=== PATIENT | female | born 1970 | race Caucasian/White ===

== ENCOUNTER 2016-11-04 16:30 | Emergency (ER) | payer MEDICAID ==
--- NOTE | 2016-11-04 16:33 | ED Physician Chart ---
Chief Complaint/HPI - Patient Information Date Seen:: 11/04/16 Time Seen:: 16:33 Chief Complaint:: eyelid swelling History of Present Illness:: 46-year-old female history of anxiety, complains of acute, constant, moderate, left upper eyelid swelling 6 days with associated itching of the upper eyelid. Denies any acute vision changes. No injury. Allergies:: Allergies Allergy/AdvReac Type Severity Reaction Status Date / Time Penicillins [PCN] Allergy Verified 06/17/16 16:00 Historian:: Patient Review:: Nurse's Note Reviewed Review of Systems - Review of Systems Other: Complete system review otherwise unremarkable except as noted in HPI. Past Medical History - Past Medical History Past Medical History: Asthma/COPD, Other (anxiety) Family History: None Social History: Non Smoker, No Alcohol, No Drug Use, Single Surgical History: None Psychiatricy History: Other (anxiety) Medication: Reviewed Family Medical History - Family Member mother History Unknown: Yes Ethnicity: Living Status: Still Living Hx Family Cancer: Yes (her brother of bone cancer 2 months ago.) Hx Family Coronary Artery Disease: No Hx Family Congestive Heart Failure: No Hx Family Hypertension: Yes Hx Family Stroke: No Hx Family Diabetes: No Hx Family Seizures: No Hx Family Dementia: No Hx Family AIDS: No Hx Family HIV: No Hx Family COPD: No Hx Family Hepatitis: No Hx Family Psychiatric Problems: Yes (anxiety) Hx Family Tuberculosis: No Physical Exam - Physical Examination Other:: INITIAL VITAL SIGNS: Reviewed by me GENERAL: Alert and interactive. No acute distress HEAD: Head is normocephalic and atraumatic EYES: EOMI. . No scleral icterus. Left upper lid is erythematous with some focal swelling consistent with hordeolum. ENT: Moist mucous membranes. NECK: Supple. No masses. Full range of motion RESPIRATORY: No tachypnea. Clear breath sounds bilaterally. No wheezing, rales, or rhonchi CV: Regular rate and rhythm. No murmurs, rubs, or gallops ABDOMEN: Soft, non-distended, non-tender. No guarding. No rebound. No masses. EXTREMITIES: No deformity. No cyanosis. No edema. SKIN: Warm and dry. No obvious rashes. NEUROLOGIC: Alert and oriented. Face is symmetric. Speech is normal. Moves all extremities equally. Motor and sensory distally intact. ED Septic Shock - . Is Septic Shock (SBP<90, OR Lactate>4 mmol\L) present?: No Reassessment (Disposition) - Reassessment Reassessment:: The patient's blood pressure was elevated (>120/80) but appears stable without evidence of hypertensive emergency or urgency. The patient was counseled about the risks hypertension urged to pursue outpatient monitoring and therapy within a week with her primary care physician. Patient has a hordeolum of the left upper lid. We will prescribe her Keflex and Polytrim eyedrops. She also has flulike symptoms as well. Has a history of asthma. We provided a prescription for prednisone for 5 days patient also received a breathing treatment. Patient felt much improved. Recommended follow -up with PCP in 2-3 days. Gave return to ER precautions. Patient understands and agrees with the plan. Reassessment Condition:: Improved - Diagnosis Diagnosis:: Hordeolum left upper lid Acute bronchitis Elevated blood pressure without diagnosis of hypertension - Aftercare/Follow up Instructions Aftercare/Follow-Up Instructions:: Counseled pt regarding lab results/diagnosis & need follow up, Refer to Discharge Instructions Medication Prescribed:: Keflex Polytrim - Patient Disposition Discharge/Transfer:: Home Time:: 17:49 Condition at Disposition:: Improved ED Discharge Plan - Patient Disposition Admit/Discharge/Transfer: PT DISCHARGED HOME Condition at Disposition: Improved Prescriptions: Cephalexin [Keflex] 500 mg PO Q6HR #40 cap Polymyxin B Sulf/Trimethoprim [Polytrim Eye Drops] 10 ml OP QID #0 drops Instructions: Sty, Bronchitis, [id number] Accepting Physician: Dru Young [Provisional Staff] - 1-3 Days
[2016-11-04] MEDS ORDERED: Albuterol/Ipratropium Neb 3 ML AERS HHN ONE ×2 (17:10→17:14)
== END 2016-11-04 18:09 | disposition home or self-care (01) ==
LOC: ER 16:30
DX: H00.014 Hordeolum externum left upper eyelid (principal); J20.9 Acute bronchitis, unspecified; R03.0 Elevated blood-pressure reading, without diagnosis of hypertension; Z88.0 Allergy status to penicillin
CPT/HCPCS: 94640; Z7502

== ENCOUNTER 2017-06-15 10:31 | Emergency (ER) | payer MEDICAID ==
--- NOTE | 2017-06-15 11:01 | ED Physician Chart ---
Chief Complaint/HPI - Patient Information Date Seen:: 06/15/17 Time Seen:: 10:50 Chief Complaint:: R facial discomfort for 5 days. History of Present Illness:: Pt c/o vague discomfort in R side of her face for 5 days. No known injury. Pt has had toothache in R lower jaw for about a month. Pt has been taking po well without N/V/D. No fever. Pt has not had any analgesic today. Allergies:: Allergies Allergy/AdvReac Type Severity Reaction Status Date / Time Penicillins [PCN] Allergy Verified 11/04/16 16:38 Vitals:: see Nurse Note. Historian:: Patient Family MD/PCP:: Ronald Gallardo. LMP:: Irregular. Pt states that she is perimenopausal. LNMP 04/18/17. Review:: Nurse's Note Reviewed Review of Systems - Review of Systems General/Constitutional: No fever, No chills, No weight loss, No weakness, No edema, No loss of appetite Skin: No skin lesions, No rash, No bruising Head: No headache, No light-headedness Eyes: No loss of vision, No pain, No diplopia ENT: No earache, No nasal drainage, No sore throat, No tinnitus Neck: No neck pain, No swelling, No thyromegaly, No stiffness, No mass noted Cardio Vascular: No chest pain, No palpitations, No edema Pulmonary: No SOB, No cough, No sputum, No wheezing GI: No nausea, No vomiting, No diarrhea, No pain G/U: No dysuria, No frequency, No hematuria Musculoskeletal: No bone or joint pain, No back pain, No muscle pain Endocrine: No polyuria, No polydipsia Psychiatric: Prior psych history, No depression, No anxiety, No suicidal ideation, No homicidal ideation, No auditory hallucination, No visual hallucination Hematopoietic: No bruising, No lymphadenopathy Allergic/Immuno: No urticaria, No angioedema Neurological: No syncope, No focal symptoms, No weakness, No paresthesia, No headache, No confusion Past Medical History - Past Medical History Past Medical History: No significant medical hx Family History: HTN (parents.), Cancer (brother) Social History: Non Smoker, No Alcohol, No Drug Use, , Other (lives with her sister.) Employment:: Unemployed. Surgical History: other (tubal ligation 15 y/a) Psychiatricy History: Depression Medication: Reviewed Family Medical History - Family Member mother History Unknown: Yes Ethnicity: Living Status: Still Living Hx Family Cancer: Yes (her brother of bone cancer 2 months ago.) Hx Family Coronary Artery Disease: No Hx Family Congestive Heart Failure: No Hx Family Hypertension: Yes Hx Family Stroke: No Hx Family Diabetes: No Hx Family Seizures: No Hx Family Dementia: No Hx Family AIDS: No Hx Family HIV: No Hx Family COPD: No Hx Family Hepatitis: No Hx Family Psychiatric Problems: Yes (anxiety) Hx Family Tuberculosis: No Physical Exam - Physical Examination General/Constitutional: Awake, Well-developed, well-nourished, Alert, No distress, GCS 15, Non-toxic appearing, Ambulatory Other Gen/Cons comments:: Breathes comfortably, speaks clearly, interacts normally, and ambulates without difficulty. Head: Atraumatic (No facial swelling or other abnormal findings.) Eyes: Lids, conjuctiva normal, PERRL, EOMI Skin: Nl inspection, No rash, No skin lesions, No ecchymosis, Well hydrated, No lymphadenopathy ENMT: External ears, nose nl, TM canals nl, Nasal exam nl, Oropharynx nl Other ENMT comments:: R lower 2nd molar tooth has discoloration and decay with partial loss of the front of the tooth. No exudate. Neck: Nontender, Full ROM w/o pain, No nuchal rigidity, No mass, No stridor Respiratory: Nl effort/Exclusion, Clear to Auscultation, No Wheeze/Rhonchi/Rales Cardio Vascular: RRR, No murmur, gallop, rubs Extremities: No tenderness or effusion, Full ROM, normal strength in all extremities, No edema, Normal digits & nails Neuro/Psych: Alert/oriented (oriented x 3), Judgement/insight normal, Mood normal, Normal gait, No focal deficits ED Septic Shock - . Is Septic Shock (SBP<90, OR Lactate>4 mmol\L) present?: No Reassessment (Disposition) - Reassessment Reassessment:: 1205 Pt feels much better. Pt requests to go home now. Aftercare instructions have been given. Reassessment Condition:: Improved - Diagnosis Diagnosis:: Toothache in R lower jaw due to pulpitis/dental decay in R lower 2nd molar tooth. Stable. - Aftercare/Follow up Instructions Aftercare/Follow-Up Instructions:: Refer to Discharge Instructions Notes:: Avoid extreme hot or cold food or liquid. May take Motrin 200 mg tab 3 tabs po q8h prn pain. May also take Tylenol 500 mg tab one tab po q6h prn pain. F/U with dentist of pt's choice in one day for recheck. Return to ER immediately if condition worsens or if any further questions/problems. Medication Prescribed:: Clindamycin 300 mg tab one tab po q6h for 10 days. D-40 R-0 - Patient Disposition Discharge/Transfer:: Home Time:: 12:10 Condition at Disposition:: Stable, Improved
== END 2017-06-15 12:15 | disposition home or self-care (01) ==
LOC: ER 10:31
DX: K08.89 Other specified disorders of teeth and supporting structures (principal); Z88.0 Allergy status to penicillin; Z98.51 Tubal ligation status
CPT/HCPCS: Z7502